=== PATIENT | female | born 1980 | race Caucasian/White ===

== ENCOUNTER 2018-05-25 08:09 | Emergency (ER) | END 2018-05-25 08:30 | disposition home or self-care (01) ==

== ENCOUNTER 2019-03-24 07:57 | Emergency (ER) | payer OTHER ==
[~2019-03-24] VITALS: Ht 154.9 cm; Wt 73.4 kg
[~2019-03-24 07:57] MED LIST: ACET500C5 PO; CEPH-443 PO; CLOT30CR24 TOP; FLUC150T PO; MUPI22OI2 TOP; PRENAT PO
[2019-03-24 08:01] VITALS: BP 121/59; PULSE 82; RESP 18; Ht 154.9 cm; Wt 73.4 kg
--- NOTE | 2019-03-24 08:29 | ERD ---
ER Documentation Chief Complaint Chief Complaint C/O MID. LOWER ABD. PAIN FOR 6 WKS. NO N/V/D. NO VAG. BLEEDING. HPI 38-year-old female who presents with 6 weeks of lower suprapubic pain that sometimes radiates up to the epigastric region. She denies . No nausea or vomiting. No fever. She does have dysuria and increased urinary frequency. She states she has vaginal itchiness and occasionally she has discharge. No vaginal bleeding. No recent unprotected sex. She is tried drinking cranberry juice to help with the pain and continues to have symptoms. ROS All systems reviewed and are negative except as per history of present illness. Medications Home Meds Active Scripts Cephalexin* (Keflex*) 500 Mg Capsule, 500 MG PO TID for 5 Days, CAP Prov:ZENAIDA ROSENTHAL PA-C 03/24/19 Fluconazole* (Diflucan*) 150 Mg Tablet, 150 MG PO ONCE, #1 TAB Prov:ZENAIDA ROSENTHAL PA-C 03/24/19 Clotrimazole* (Clotrimazole* AF) 1% - 30 Gm Cream.gm., 1 APPLIC TOP BID for 7 Days, TUB Prov:MURTAZA LAO 05/25/18 Mupirocin* (Bactroban*) 2% -22 Gram Oint...g., 1 APPLIC TOP BID for 7 Days, EA Prov:MURTAZA LAO 05/25/18 Reported Medications Acetaminophen* (Tylophen*) 500 Mg Capsule, 325 MG PO Q6H PRN for GERARDO, TAB 07/04/16 Multivit/Min/Fol Ac/Iron/Pren* ( S*) 1 Tab Tab, 1 TAB PO DAILY, TAB 07/04/16 Allergies Allergies: Coded Allergies: No Known Allergy (Verified , 03/24/19) PMhx/Soc History of Surgery: Yes (cesarian section 07/06/16) Anesthesia Reaction: No Hx Neurological Disorder: No Hx Respiratory Disorders: No Hx Cardiac Disorders: Yes (hypertension) Hx Psychiatric Problems: No Hx Miscellaneous Medical Probl: No Hx Alcohol Use: Yes (beer sometimes) Hx Substance Use: No Hx Tobacco Use: No Smoking Status: Never smoker FmHx Family History: No diabetes Physical Exam Vitals Vital Signs Date Temp Pulse Resp B/P (MAP) Pulse Ox O2 O2 Flow FiO2 Time Delivery Rate 03/24/19 98.0 82 18 121/59 97 08:01 (79) Physical Exam INITIAL VITAL SIGNS: Reviewed by me GENERAL: Awake, alert and oriented x 4, well appearing, nontoxic, speaking in full sentences. No acute distress HEAD: Atraumatic RESPIRATORY: Clear to auscultation bilaterally. Symmetric chest wall rise. No wheezing or rales. No accessory muscle use. CV: Regular rate and rhythm. No murmurs, rubs, or gallops. ABDOMEN: Soft, non-distended. Nontender. Negative [place]. Negative [place] point tenderness. No CVA tenderness bilaterally. No guarding. No rebound. : Deffered. Results 24 hrs Laboratory Tests Test 03/24/19 08:23 03/24/19 08:32 Urine Color YELLOW Urine Clarity SLIGHTLY CLOUDY Urine pH 5.0 Urine Specific [place] 1.014 Urine Ketones NEGATIVE mg/dL Urine Nitrite NEGATIVE mg/dL Urine Bilirubin NEGATIVE mg/dL Urine Urobilinogen NEGATIVE mg/dL Urine Leukocyte Esterase 1+ [place]/ul Urine Microscopic RBC 2 /HPF Urine Microscopic WBC 3 /HPF Urine Squamous Epithelial Cells FEW /HPF Urine Bacteria FEW /HPF Urine Mucus FEW /HPF Urine Hemoglobin 1+ mg/dL Urine Glucose NEGATIVE mg/dL Urine Total Protein NEGATIVE mg/dl POC Beta HCG, Qualitative NEGATIVE Procedures/MDM 38-year-old female presents with pelvic pain and discomfort. Is well-appearing afebrile no distress. Her GI examination is benign and she has no tenderness to palpation throughout. Urinalysis and urine test ordered. Urine is positive for possible urinary tract infection. She was given a prescription for Keflex. Patient counseled regarding my diagnostic impression and care plan. Prior to discharge all questions answered. Pt agrees with treatment plan and understands strict return precautions. Pt is instructed to follow up with primary care provider within 24-48 hours. Precautionary instructions provided including instructions to return to the ER if not improving or for any worsening or changing symptoms or concerns. Departure Diagnosis: Primary Impression: Cystitis Condition: Stable ZENAIDA ROSENTHAL PA-C Mar 24, 2019 08:29
== END 2019-03-24 09:05 | disposition home or self-care (01) ==
LOC: FTE 07:57
DX: N30.90 Cystitis, unspecified without hematuria (principal); I10 Essential (primary) hypertension
CPT/HCPCS: 81001; 81025; Z7502; 99283